=== PATIENT | male | born 1995 | race Caucasian/White ===

== ENCOUNTER 2021-12-09 15:15 | Emergency (ER) | payer OTHER, SELFPAY ==
[2021-12-09 15:21] VITALS: BP 158/98; PULSE 102; RESP 20; TEMP 35.8; O2SAT 98; BMI 34.4
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
[2021-12-09] MEDS: Lidocaine HCl 2 % MPF 5 ML VIAL SUBCUT (18:05)
== END 2021-12-09 18:46 | disposition home or self-care (01) ==
LOC: HO.ED 18:44
PROVIDERS: Emergency Provider Student in an Organized Health Care Education/Training Program; PCP Nurse Practitioner Family
DX: S61.212A Laceration without foreign body of right middle finger without damage to nail, initial encounter (principal); W22.8XXA Striking against or struck by other objects, initial encounter; Y93.89 Activity, other specified; Y92.044 Garage of boarding-house as the place of occurrence of the external cause; Y99.9 Unspecified external cause status
CPT/HCPCS: 12042; 99282; 99284